=== PATIENT | male | born 1955 | race Caucasian/White ===

== ENCOUNTER → 2017-01-26 | Outpatient (CLI) | payer OTHER ==
[~2017-01-26] MED LIST: COZAAR 50MG TAB50 MG PO; NORCO 10-325 T1 EACH PO
[2017-01-26 09:23] LABS: RED BLOOD COUNT 5.67 M/UL (4.20-5.50); WHITE BLOOD COUNT 9.6 K/UL (4.5-11.0)
[2017-01-26 09:37] LABS: BUN/CREATININE RATIO 10 (0-10)
== END ==
LOC: OPSV2 08:00
PROVIDERS: Orthopaedic Surgery
DX: Z01.812 Encounter for preprocedural laboratory examination (principal); Z01.810 Encounter for preprocedural cardiovascular examination; I10 Essential (primary) hypertension
CPT/HCPCS: 36415; 80048; 85025; 93005

== ENCOUNTER → 2017-02-09 | Day surgery (SDC) | payer OTHER | END | disposition home or self-care (01) | LOC: OR 08:15 | PROVIDERS: Orthopaedic Surgery | PROC: 0LN10ZZ Release Right Shoulder Tendon, Open Approach (ICD-10-PCS; 2017-02-09) | PROC: 0RNJ0ZZ Release Right Shoulder Joint, Open Approach (ICD-10-PCS; 2017-02-09) | PROC: 0LN10ZZ Release Right Shoulder Tendon, Open Approach (ICD-10-PCS; 2017-02-09) | PROC: 0LQ10ZZ Repair Right Shoulder Tendon, Open Approach (ICD-10-PCS; principal; 2017-02-09 14:30) | DX: M75.101 Unspecified rotator cuff tear or rupture of right shoulder, not specified as traumatic (principal); M66.811 Spontaneous rupture of other tendons, right shoulder; M19.90 Unspecified osteoarthritis, unspecified site; G89.29 Other chronic pain; I10 Essential (primary) hypertension; Z79.2 Long term (current) use of antibiotics; Z79.899 Other long term (current) drug therapy; Z90.89 Acquired absence of other organs; Z87.19 Personal history of other diseases of the digestive system | CPT/HCPCS: J0690; J1100; J2250; J2405; J2710; J2795; J3010; J7030; J7120 ==

== ENCOUNTER → 2022-05-11 | Day surgery (SDC) | payer OTHER ==
[~2022-05-11] MED LIST changes: +CHOLESTEROL RE1 EACH PO; +PROCARDIA 10 MG10 MG PO; +ROBAXIN 750 MG750 MG PO
== END | disposition home or self-care (01) ==
LOC: OR 06:59
DX: Z12.11 Encounter for screening for malignant neoplasm of colon (principal); N40.0 Benign prostatic hyperplasia without lower urinary tract symptoms; I10 Essential (primary) hypertension; Z79.899 Other long term (current) drug therapy
CPT/HCPCS: J2704